=== PATIENT | female | born 1980 | race Caucasian/White ===

== ENCOUNTER 2017-03-13 10:02 | Emergency (ER) | payer OTHER ==
[~2017-03-13] VITALS: Ht 175.3 cm; Wt 68.0 kg
[2017-03-13 10:25] LABS: HEMATOCRIT 40.1 % (36.0-46.0); MCH 30.1 PG (29.0-34.0); MCHC 33.2 G/DL (30.0-36.0); MCV 90.7 FL (83-99); MEAN PLAT.VOLUME 10.4 uM^3 (9.5-12.4); PLATELET COUNT 220 K/uL (156-360); RBC DIS.WIDTH-CV 13.1 % (11.8-14.6); RBC DIS.WIDTH-SD 43.8 % (39-53); RED BLOOD COUNT 4.42 M/uL (3.80-5.20); WHITE BLOOD COUNT 6.8 K/uL (4.1-10.2)
[2017-03-13 10:35] LABS: CHLORIDE 108 mEq/L (99-109); POTASSIUM 4.2 mEq/L (3.7-5.4); SODIUM 139 mEq/L (136-147)
[2017-03-13 10:38] LABS: GLUCOSE 106 mg/dL (70-99)
[2017-03-13 10:39] LABS: ANION GAP 10 MEQ/L (2-14); TOTAL BILIRUBIN 0.8 mg/dL (0.0-1.0)
[2017-03-13 10:41] LABS: ALKALINE PHOSPHATASE 73 IU/L (3-129)
[2017-03-13 10:42] LABS: UREA NITROGEN (BUN) 8 mg/dL (9-23)
[2017-03-13 10:49] LABS: GFR ESTIMATE (CALCULATED) > 59 mL/min/
[2017-03-13 10:50] LABS: QUANTITATIVE HCG < 4.0 MIU/ML
[2017-03-13 12:44] LABS: ADD MIUA? YES; BILIRUBIN NEGATIVE; BLOOD NEGATIVE; COLOR YELLOW ((YELLOW)); GLUCOSE (STRIP) NEGATIVE; KETONES 20; LEUKOCYTES TRACE; NITRITE NEGATIVE; PROTEIN (STRIP) NEGATIVE; SPECIFIC GRAVITY 1.024 (1.000-1.030)
[2017-03-13 12:51] LABS: BACTERIA RARE /HPF; EPITHELIAL CELLS 1+ /HPF; MUCUS 3+ /LPF; RED BLOOD CELLS 0-5 /HPF (0-5); UCUL ADDED? NO; WHITE BLOOD CELLS 0-5 /HPF (0-5)
[2017-03-13] MEDS ORDERED: ULTRAM50 MG PO (13:57)
[2017-03-13 14:07] VITALS: BP 114/68
== END 2017-03-13 14:09 | disposition home or self-care (01) ==
LOC: EME 10:02
DX: E28.2 Polycystic ovarian syndrome (principal)
CPT/HCPCS: 76856; 80053; 81003; 84702; 85027; 99281; 99285; J1885; J2270